=== PATIENT | male | born 1955 | race American Indian/Alaskan Native ===

== ENCOUNTER 2018-08-31 09:23 | Day surgery (SDC) | payer OTHER ==
[~2018-08-31 09:23] MED LIST: DIPRIVAN 10 MG/ML IV ONE; NACL 0.9% 1000 ML 1,000 ML IV SCH; WATER FOR IRRIG STERILE IR ONE
--- NOTE | 2018-08-31 12:24 | Operative Report ---
Operative Report Operative Report: Date of procedure: 08/31/2018 Procedure: Colonoscopy with Snare polypectomy with Hemoclip application, Mul tiple Hot Biopsy Polypectomies, Ablation of colon polyps and submucosal injection. Attending physician: Gino Schumacher M.D. Tunnel Elastic Operator Zigzag: Gino Schumacher M.D. Indication: Patient is a 62-year-old male who presents for screening colonoscopy. Patient also has a history of abdominal discomfort. This colonoscopy serves to evaluate patient so that treatment may be directed based on the findings. Consent: Informed consent was obtained after advising the patient and family regarding nature of this procedure, its indications, potential benefits as well as possible complications including but not limited to bleeding perforation and adverse reaction to medication, infection as well as other cardiopulmonary complications. An informed written and verbal consent was then obtained after due opportunity was provided for questions and answers. Monitoring: Patient was monitored continuously with pulse oximetry and electrocardiographic recordings as well as blood pressure recordings. Vital signs remained stable throughout this procedure with no untoward events. Preoperative assessment: Patient was assessed immediately prior to this procedure for capacity to tolerate monitored anesthesia care and moderate sedation as well as general anesthesia. Patient's ASA classification is 2, Mallampati class is 2, Hyomental distance is 3. Instrument: FSIn video colonoscope Medications: Propofol given intravenously in divided doses. For details please refer to anesthesia records. Description of procedure: Patient was placed in the left lateral decubitus position after achieving sedation, a digital rectal examination was performed following which the colonoscope was introduced into the anal verge and advanced to the cecum which was identified by the cecal valve, the appendiceal orifice, as well as by the cecal strap and direct transillumination. The colonoscope was subsequently withdrawn with careful inspection of all mucosal surfaces. Patient tolerated this procedure well and was subsequently taken to the recovery room. The following findings were noted. Findings: The Cecum normal. In the proximal ascending colon, patient had a 1 cm sessile polyp which was elevated with submucosal injection of saline and removed by snare electrocautery. The defect at the polypectomy site was then closed with a Hemoclip. The transverse colon was normal. Descending colon was normal. In the sigmoid colon, patient had 2 flat diminutive 5 mm polyps which were removed by hot biopsy polypectomy. In the rectum, patient had 4 diminutive polyps which were ablated. On the retroflexed view at the anal verge, patient had fairly prominent internal hemorrhoids. Impression: Ascending colon polyp status post submucosal injection, snare polypectomy, and Hemoclip application. Multiple sigmoid colon polyps status post hot biopsy polypectomy. Multiple rectal polyps status post ablation. Prominent Internal hemorrhoids. Plan: Follow pathology report. High-fiber diet. Repeat colonoscopy in 3 years.
--- NOTE | 2018-08-31 12:25 | Discharge Summary ---
Short Stay Discharge Plan Activity: advance as tolerated Weight Bearing Status: Weight Bear as Tolerated Diet: regular Follow up with: PRIMARY CARE, [Primary Care Provider] - 7 Days
[2018-08-31 12:37] VITALS: BP 126/78
--- NOTE | 2018-08-31 15:31 | Anesthesia Day of Surgery ---
Anesthesia Day of Surgery - Day of Surgery Patient Examined: Yes Patient H&P Reviewed: Yes Patient is NPO: Yes Beta Blockers: No Cardiac Clearance: No Pulmonary Clearance: No Jeff's Test: N/A
--- NOTE | 2018-08-31 15:33 | Anesthesia Consultation ---
Anesthesia Consult and Med Hx - Airway Anesthetic Teeth Evaluation: Good ROM Head & Neck: Adequate Mental/Hyoid Distance: Adequate Mallampati Class: Class I Intubation Access Assessment: Good - Pulmonary Exam CTA: Yes - Cardiac Exam Cardiac Exam: RRR - Pre-Operative Health Status ASA Pre-Surgery Classification: ASA3 Proposed Anesthetic Plan: General, TIVA - Pulmonary Hx Smoking: Yes (Chronic Cough) Hx Sleep Apnea: Yes - Cardiovascular System Hx Hypertension: Yes - Gastrointestinal Hx Gastroesophageal Reflux Disease: Yes - Other Systems Hx Cancer: No
--- NOTE | 2018-08-31 15:33 | Post Anesthesia Evaluation ---
- Post Anesthesia Evaluation Airway Patent: Yes Stable Respiratory Function: Yes Nausea/Vomiting: No Temp > 96.8F: Yes Pain Manageable: Yes Adequeate Hydration: Yes Anesthesia Complications: No Block Receding Appropriately: Not Applicable Patient on Ventilator: No
== END 2018-08-31 13:10 | disposition home or self-care (01) ==
LOC: GIO 09:23
PROVIDERS: ATTEND Internal Medicine Gastroenterology
DX: D12.2 Benign neoplasm of ascending colon (principal); K63.5 Polyp of colon; K64.8 Other hemorrhoids; K62.1 Rectal polyp; K21.9 Gastro-esophageal reflux disease without esophagitis; I10 Essential (primary) hypertension; G47.30 Sleep apnea, unspecified; F17.210 Nicotine dependence, cigarettes, uncomplicated; Z79.899 Other long term (current) drug therapy; Z98.890 Other specified postprocedural states
CPT/HCPCS: 45381; 45384; 45385; 45388; 88305; J2704; J7030

== ENCOUNTER 2018-10-05 10:20 | Day surgery (SDC) | payer OTHER ==
[~2018-10-05 10:20] MED LIST changes: -DIPRIVAN 10 MG/ML IV ONE; -WATER FOR IRRIG STERILE IR ONE
[2018-10-05] MEDS ORDERED: DIPRIVAN 10 MG/ML IV ONE (13:27)
--- NOTE | 2018-10-05 13:43 | Operative Report ---
Operative Report Operative Report: Date: 10/05/2018 Operative Report: Date of procedure: 10/05/2018 Procedure: Esophagogastroduodenoscopy with multiple mucosal biopsies Attending physician: Gino Schumacher MD Kiln Stoker: Gino Schumacher MD Indication: Patient is a 63-year-old male who presented with a history of epigastric pain heartburn and indigestion with dysphagia. An upper endoscopy is done to assess patient so that treatment may be directed based on the findings. Consent: Informed consent was obtained after advising the patient and family regarding nature of this procedure, its indications, potential benefits as well as possible complications including but not limited to bleeding perforation and adverse reaction to medication, infection as well as other cardiopulmonary complications. An informed written and verbal consent was then obtained after due opportunity was provided for questions and answers. Monitoring: Patient was monitored continuously with pulse oximetry and electrocardiographic recordings as well as blood pressure recordings. Vital signs remained stable throughout this procedure with no untoward events. Preoperative assessment: Patient was assessed immediately prior to this procedure for capacity to tolerate monitored anesthesia care and moderate sedation as well as general anesthesia. Patient's ASA classification is 2, Mallampati class is 2, Hyomental distance is 3. Instrument: Olympus video endoscope Medications: Propofol given intravenously in divided doses. For details please refer to anesthesia records. Description of procedure: Patient was placed in the left lateral decubitus position after achieving sedation, the endoscope was introduced into the esophagus under direct vision. It was then advanced beyond the esophagus into the stomach and then beyond the stomach into the duodenum and to the second portion of the duodenum. It was subsequently withdrawn with careful inspection of all mucosal surfaces with the following findings. Findings: In the esophagus, the Z line was irregular at 38 cm. There was a 2 cm sliding hiatal hernia seen on entry into the stomach. There was erythema seen in the gastric antrum. Biopsies of the antrum were obtained for histopathology. The duodenum was normal to second portion. Impression: Irregular Z line Hiatal hernia Gastric antral erythema Plan: Follow pathology report. Continue treatment with proton pump inhibitors and direct additional treatment based on the pathology report.
--- NOTE | 2018-10-05 13:43 | Anesthesia Consultation ---
Anesthesia Consult and Med Hx Date of service: 10/05/18 - Airway Anesthetic Teeth Evaluation: Poor (multiple broken, missing teeth), Dentures (upper) ROM Head & Neck: Adequate Mental/Hyoid Distance: Adequate Mallampati Class: Class II Intubation Access Assessment: Probably Good - Pre-Operative Health Status ASA Pre-Surgery Classification: ASA3 Proposed Anesthetic Plan: MAC - Pulmonary Hx Smoking: Yes Hx Respiratory Symptoms: Yes (Chronic Cough) Hx Sleep Apnea: Yes - Cardiovascular System Hx Hypertension: Yes - Central Nervous System Hx Psychiatric Problems: Yes (depression/anxiety) - Gastrointestinal Hx Gastroesophageal Reflux Disease: Yes - Other Systems Hx Cancer: No
--- NOTE | 2018-10-05 13:44 | Anesthesia Day of Surgery ---
Anesthesia Day of Surgery - Day of Surgery Patient Examined: Yes Patient H&P Reviewed: Yes Patient is NPO: Yes
--- NOTE | 2018-10-05 13:44 | Discharge Summary ---
Short Stay Discharge Plan Activity: advance as tolerated Weight Bearing Status: Weight Bear as Tolerated Diet: regular Follow up with: PRIMARY CARE, [Primary Care Provider] - 7 Days
[2018-10-05] MEDS ORDERED: XYLOCAINE MPF 2% ONE (14:00)
[2018-10-05 14:13] VITALS: BP 134/89
== END 2018-10-05 10:21 | disposition home or self-care (01) ==
LOC: GIO 10:20
PROVIDERS: ATTEND Internal Medicine Gastroenterology
DX: K29.50 Unspecified chronic gastritis without bleeding (principal); K44.9 Diaphragmatic hernia without obstruction or gangrene; I10 Essential (primary) hypertension; G47.30 Sleep apnea, unspecified; K21.9 Gastro-esophageal reflux disease without esophagitis; Z98.890 Other specified postprocedural states; Z87.891 Personal history of nicotine dependence; Z79.899 Other long term (current) drug therapy
CPT/HCPCS: 88305; 88342; J2704; J7030